=== PATIENT | male | born 1950 | race Caucasian/White ===

== ENCOUNTER → 2018-07-27 | Outpatient (CLI) | payer MEDICARE, OTHER | LOC: CARD 08:32 | PROVIDERS: ATTEND Physician Assistant | DX: I11.0 Hypertensive heart disease with heart failure (principal); I50.9 Heart failure, unspecified; I47.2 Ventricular tachycardia; I08.3 Combined rheumatic disorders of mitral, aortic and tricuspid valves | CPT/HCPCS: 93306 ==

== ENCOUNTER → 2018-09-10 | Outpatient (CLI) | payer MEDICARE, OTHER ==
--- NOTE | 2018-09-10 11:30 | Diagnostic Imaging Report ---
Indication: Acute bronchitis. Time of exam 11:21 AM Comparison is made with prior chest from 12/16/2007. Minimal patchy density is identified in the right midlung field suggestive of pneumonia. The pulmonary vascularity is normal. No effusion or pneumothorax is seen. Impression: Minimal patchy right midlung pneumonia. Dictated by: Dictated on workstation # [id number]
== END ==
LOC: RAD 11:11
PROVIDERS: ATTEND Physician Assistant
DX: J20.9 Acute bronchitis, unspecified (principal); J11.1 Influenza due to unidentified influenza virus with other respiratory manifestations
CPT/HCPCS: 71046

== ENCOUNTER 2019-02-11 09:15 | Outpatient (CLI) | payer MEDICARE, OTHER ==
[~2019-02-11] VITALS: Ht 177.8 cm; Wt 94.3 kg
[2019-02-11] MEDS ORDERED: ACEB400C PO (09:20)
[2019-02-11] MEDS ORDERED: FISH1CAP15 PO (09:20)
[2019-02-11] MEDS ORDERED: ATOR10TA PO (09:20)
[2019-02-11] MEDS ORDERED: PANT40TA3 PO (09:20)
[2019-02-11] MEDS ORDERED: ENAL10TA PO (09:20)
[2019-02-11] MEDS ORDERED: AMLO5TAB4 PO (09:20)
== END 2019-02-11 09:22 | disposition home or self-care (01) ==
LOC: PREOP 09:15
PROVIDERS: ATTEND Internal Medicine
DX: Z01.818 Encounter for other preprocedural examination (principal)

== ENCOUNTER 2019-02-12 08:03 | Day surgery (SDC) | payer MEDICARE, OTHER ==
--- NOTE | 2019-02-04 18:28 | HISTORY AND PHYSICAL ---
DATE OF SERVICE: 02/12/2019 COLONOSCOPY HISTORY AND PHYSICAL HISTORY OF PRESENT ILLNESS: The patient is a 68-year-old white male referred by Dr. Palmer for screening colonoscopy. He reports one of the colonoscopy 10 years ago. He does not recall any problems with. It was performed by Dr. Colbert. He is deemed to be of average risk. He is not aware of any family history for colon cancer. He denies any bowel habit changes. Noted no bright red blood per rectum, melena or abdominal pain. PAST MEDICAL HISTORY: Significant for hypertension and hyperlipidemia with no known history of coronary artery disease. He sees Dr. Moran occasionally as well as Dr. Palmer for palpitations. He has no reported history of vascular disease. MEDICATIONS: Include acebutolol 400 mg daily, enalapril 10 mg daily, Lipitor 10 mg daily, Norvasc 5 mg daily, fish oil supplementation 12,000 mg daily and pantoprazole 40 mg daily. PAST SURGICAL HISTORY: He had left distal tibial fracture, but he underwent open reduction and internal fixation number of years ago. He has had bilateral inguinal herniorrhaphy number of years ago as well. FAMILY HISTORY: Father of motor vehicle accident in his 40s. Mother of what sounds like esophageal cancer with liver metastasis. He has several brothers and sisters alive and well with no health problems. Additional history, he denies any dysphagia, heartburn symptoms are controlled on pantoprazole. Weight has been stable. SOCIAL HISTORY: He is retired with no past smoking history and reports about 2 to 3 beer per week. Alcohol intake with no past history of heavy drinking. He reports no known drug allergies. PHYSICAL EXAMINATION: GENERAL: Reveals a well-appearing white male in no acute distress. VITAL SIGNS: Blood pressure 120/80. HEENT: Unremarkable. Mallampati class 1 pharyngeal configuration. No erythema or exudate noted. CHEST: Clear to auscultation. CARDIOVASCULAR: Reveals a regular rate and rhythm without murmur, S3 or S4. ABDOMEN: Soft, supple without mass, organomegaly or tenderness. EXTREMITIES: Reveal no cyanosis, clubbing or edema. ASSESSMENT AND PLAN: The patient was set up for screening colonoscopy on 02/12/2019. Prep instructions with the Suprep kit were given and questions were answered. I thank you for the referral of this pleasant gentleman. Job ID: [id number] DocumentID: [id number] Dictated Date: 02/01/2019 14:47:13 [place]ter Date: 02/01/2019 15:04:30 Dictated By: TEMITOPE PRECIADO MD
[2019-02-12] VITALS (10 sets, daily range): BP systolic 113–150; BP diastolic 58–92
[~2019-02-12] VITALS: Ht 177.8 cm; Wt 94.3 kg
[~2019-02-12 08:03] MED LIST: ACEB400C PO; AMLO5TAB4 PO; ATOR10TA PO; ENAL10TA PO; FISH1CAP15 PO; PANT40TA3 PO
[2019-02-12] MEDS ORDERED: D5 LR IV SOLUTION 1,000 ML IV ONE (08:04)
[2019-02-12] MEDS ORDERED: D5 LR IV SOLUTION 1,000 ML IV STA (08:12)
[2019-02-12] MEDS ORDERED: LIDOCAINE JELLY 2% 6 ML SYRINGE MM PRN (08:15)
[2019-02-12] MEDS ORDERED: fentaNYL INJECTION 100 MCG/2 ML AMP IVP ONE (08:15)
[2019-02-12] MEDS ORDERED: MIDAZOLAM 2 MG/2 ML (VERSED) VIAL IVP ONE (08:15)
[2019-02-12] MEDS ORDERED: fentaNYL INJECTION 100 MCG/2 ML AMP ONE (08:51)
[2019-02-12] MEDS ORDERED: MIDAZOLAM 2 MG/2 ML (VERSED) VIAL ONE ×2 (08:51)
[2019-02-12] MEDS ORDERED: LIDOCAINE JELLY 2% 6 ML SYRINGE ONE (08:51)
--- NOTE | 2019-02-12 09:50 | Pre-Op Note & Conscious Sedat ---
Pre-Operative Progress Note H&P Reviewed The H&P was reviewed, patient examined and no changes noted. Date H&P Reviewed: Feb 12, 2019 Time H&P Reviewed: 08:40 Conscious Sedation Pre-Proced ASA Score 2 For ASA 3 and 4: Consider anesthesia and medical clearance. Also, for patients with a history of failed moderate sedation consider anesthesia. Airway Lungs Heart ASA score ASA 1: a normal healthy patient ASA 2: a patient with a mild systemic disease (mid diabetes, controlled hypertension, obesity ASA 3: a patient with a severe systemic disease that limits activity (angina, COPD, prior Myocardial infarction) ASA 4: a patient with an incapacitating disease that is a constant threat to life (CHF, renal failure) ASA 5: a moribund patient not expected to survive 24 hrs. (ruptured aneurysm) ASA 6: a declared brain- patient whose organs are being harvested. For emergent operations, add the letter E after the classification Mallampati Classification Grade 2 Sedation Plan Analgesia, Amnesia, Plan communicated to team members, Discussed options with patient/fam, Discussed risks with patient/fam The patient is an appropriate candidate to undergo the planned procedure, sedation, and anesthesia. The patient immediately re-assessed prior to indication. TEMITOPE PRECIADO MD Feb 12, 2019 09:50
--- OUTSIDE RECORDS SUMMARY | 2019-02-12 10:21 | XMS REPORT | Clinical Summary ---
Author Author [facility] Organization [facility] Address Unknown Phone Unavailable Care Team Providers Care Valuer Name Role Phone PCP Unavailable Source Comments Some departments are not documenting in the electronic medical record. If you d o not see the information that you expected, contact Release of Information in [facility] Information Management department at [phone] for further assistan ce in locating additional records.[facility] Allergies Not on File Medications Not on file Active Problems Not on file Social History Date Tobacco Use Types Packs/Day Years Used Never Assessed Sex Assigned at Date Recorded Not on file Industry Job Start Date Occupation Not on file Not on file Not on file Travel End Travel History Travel Start No recent travel history available. Last Filed Vital Signs Not on file Plan of Treatment Health Maintenance Due Date Last Done Comments HEPATITIS C SCREENING 1950 PHYSICAL (COMPREHENSIVE) 1957 EXAM DTAP/TDAP VACCINES (1 - 1968 Tdap) COLORECTAL CANCER 2000 SCREENING SHINGLES RECOMBINANT 2000 VACCINE (1 of 2) PNEUMONIA (PCV13/PPSV23) 10/24/2015 VACCINES (1 of 2 - PCV13) INFLUENZA VACCINE 04/06/2019 Results Not on filefrom Last 3 Months
--- OUTSIDE RECORDS SUMMARY | 2019-02-12 10:21 | XMS REPORT ---
Author KOLE Melara [facility] [place] eClinical[employer] Address Unknown Phone Unavailable Care Team Providers Care Machine Maintenance Name Role Phone KOLE ANTON CP Unavailable Allergies No Known Allergies Problems Problem Type Condition Code Onset Dates Condition Status Problem Need for prophylactic vaccination and inoculation, Influenza V04.81 Active Assessment Encounter for immunization Z23 Active Problem ZOSTAVAX DX V05.8 Active Medications No Known Medications Procedures Procedure Coding System Code Date SINGLE IMMUNIZATION ADMIN CPT-4 40283 May 12, 2015 FLUARIX QUAD (3 & UP)-GSK-2014 CPT-4 35442 May 12, 2015 Results No Known Results Immunizations Vaccine Administration Date FLUARIX QUAD (3 & UP)-GSK-2014May 12, 2015 Summary Purpose eClinicalWorks Submission
--- OUTSIDE RECORDS SUMMARY | 2019-02-12 10:22 | XMS REPORT | Continuity of Care Document ---
Demographics Preferred Language Unknown Marital Status Unknown Amish Affiliation Unknown Race Unknown Ethnic Group Unknown Author Organization Unknown Address Unknown Phone Unavailable Allergies Active Description Code Type Severity Reaction Onset Reported/Identified Relationship to Patient Clinical Status Yes No Known Drug Allergies [id number] Drug Allergy Unknown N/A 02/11/2019 Medications There is no data. Problems Date Dx Coded Attending Type Code Diagnosis Diagnosed By 06/05/1650 TIERNEY SHANKS Ot M70.32 OTHER BURSITIS OF ELBOW, LEFT ELBOW 07/29/2012 V04.81 FLU DX (3 YRS AND ABOVE, IM) 07/29/2012 V04.81 FLU DX (3 YRS AND ABOVE, IM) 09/23/2012 V05.8 ZOSTAVAX DX 06/13/2014 PRISCILLA FLORES Ot 401.9 06/13/2014 PRISCILLA FLORES Ot 427.1 06/13/2014 PRISCILLA FLORES Ot 428.0 07/01/2014 PRISCILLA FLORES Ot 401.9 07/01/2014 PRISCILLA FLORES Ot 427.1 07/01/2014 PRISCILLA FLORES Ot 428.0 07/01/2014 Ot 397.0 07/01/2014 Ot 424.0 07/01/2014 Ot 427.69 07/01/2014 Ot 428.0 07/01/2014 ANRDEW ARRIAZA MD Ot 397.0 07/01/2014 ANDREW ARRIAZA MD Ot 424.0 07/01/2014 ANDREW ARRIAZA MD Ot 428.0 07/01/2014 ANDREW ARRIAZA MD Ot 429.3 07/01/2014 PRISCILLA FLORES Ot 401.9 07/01/2014 PRISCILLA FLORES Ot 427.1 07/01/2014 PRISCILLA FLORES Ot 428.0 08/30/2014 Ot 397.0 08/30/2014 Ot 424.0 08/30/2014 Ot 427.69 08/30/2014 Ot 428.0 08/30/2014 ARSALAN HUGHES, ANDREW Scruggs Ot 397.0 08/30/2014 ARSALAN HUGHES, ANDREW Scruggs Ot 424.0 08/30/2014 ANDREW ARRIAZA MD Ot 428.0 08/30/2014 ANDREW ARRIAZA MD Ot 429.3 08/30/2014 HOLLY FLORESTH K Ot 401.9 08/30/2014 HOLLY FLORESTH K Ot 427.1 08/30/2014 HOLLY FLORESTH K Ot 428.0 12/19/2015 Ot 397.0 TRICUSPID VALVE DISEASE 12/19/2015 Ot 424.0 MITRAL VALVE DISORDER 12/19/2015 Ot 427.69 PREMATURE BEATS NEC 12/19/2015 Ot 428.0 CONGESTIVE HEART FAILURE NOS 12/19/2015 ANDREW ARRIAZA MD Ot 397.0 TRICUSPID VALVE DISEASE 12/19/2015 ANDREW ARRIAZA MD Ot 424.0 MITRAL VALVE DISORDER 12/19/2015 ANDREW ARRIAZA MD Ot 428.0 CONGESTIVE HEART FAILURE NOS 12/19/2015 ANDREW ARRIAZA MD Ot 429.3 CARDIOMEGALY 12/19/2015 HOLLY FLORESTH K Ot 401.9 HYPERTENSION NOS 12/19/2015 HOLLY FLORESTH K Ot 427.1 PAROX VENTRIC TACHYCARD 12/19/2015 HOLLY FLORESTH K Ot 428.0 CONGESTIVE HEART FAILURE NOS 12/19/2015 Ot 397.0 TRICUSPID VALVE DISEASE 12/19/2015 Ot 424.0 MITRAL VALVE DISORDER 12/19/2015 Ot 427.69 PREMATURE BEATS NEC 12/19/2015 Ot 428.0 CONGESTIVE HEART FAILURE NOS 12/19/2015 ANDREW ARRIAZA MD Ot 397.0 TRICUSPID VALVE DISEASE 12/19/2015 ANDREW ARRIAZA MD Ot 424.0 MITRAL VALVE DISORDER 12/19/2015 ANDREW ARRIAZA MD Ot 428.0 CONGESTIVE HEART FAILURE NOS 12/19/2015 ANDREW ARRIAZA MD Ot 429.3 CARDIOMEGALY 12/19/2015 HOLLY FLORESTH K Ot 401.9 HYPERTENSION NOS 12/19/2015 HOLLY FLORESTH K Ot 427.1 PAROX VENTRIC TACHYCARD 12/19/2015 HOLLY FLORESTH K Ot 428.0 CONGESTIVE HEART FAILURE NOS 12/27/2015 TIERNYE SHANKS Ot M70.32 OTHER BURSITIS OF ELBOW, LEFT ELBOW 01/24/2016 Ot 397.0 TRICUSPID VALVE DISEASE 01/24/2016 Ot 424.0 MITRAL VALVE DISORDER 01/24/2016 Ot 427.69 PREMATURE BEATS NEC 01/24/2016 Ot 428.0 CONGESTIVE HEART FAILURE NOS 01/24/2016 ANDREW ARRIAZA MD Ot 397.0 TRICUSPID VALVE DISEASE 01/24/2016 ANDREW ARRIAZA MD Ot 424.0 MITRAL VALVE DISORDER 01/24/2016 ANDREW ARRIAZA MD Ot 428.0 CONGESTIVE HEART FAILURE NOS 01/24/2016 ANDREW ARRIAZA MD Ot 429.3 CARDIOMEGALY 01/24/2016 PRISCILLA FLORES Ot 401.9 HYPERTENSION NOS 01/24/2016 PRISCILLA FLORES Ot 427.1 PAROX VENTRIC TACHYCARD 01/24/2016 PRISCILLA FLORES Ot 428.0 CONGESTIVE HEART FAILURE NOS 01/26/2016 Ot 397.0 TRICUSPID VALVE DISEASE 01/26/2016 Ot 424.0 MITRAL VALVE DISORDER 01/26/2016 Ot 427.69 PREMATURE BEATS NEC 01/26/2016 Ot 428.0 CONGESTIVE HEART FAILURE NOS 01/26/2016 ANDREW ARRIAZA MD Ot 397.0 TRICUSPID VALVE DISEASE 01/26/2016 ANDREW ARRIAZA MD Ot 424.0 MITRAL VALVE DISORDER 01/26/2016 ANDREW ARRIAZA MD Ot 428.0 CONGESTIVE HEART FAILURE NOS 01/26/2016 ANDREW ARRIAZA MD Ot 429.3 CARDIOMEGALY 01/26/2016 PRISCILLA FLORES Ot 401.9 HYPERTENSION NOS 01/26/2016 PRISCILLA FLORES Ot 427.1 PAROX VENTRIC TACHYCARD 01/26/2016 PRISCILLA FLORES Ot 428.0 CONGESTIVE HEART FAILURE NOS 05/08/2016 Ot 397.0 TRICUSPID VALVE DISEASE 05/08/2016 Ot 424.0 MITRAL VALVE DISORDER 05/08/2016 Ot 427.69 PREMATURE BEATS NEC 05/08/2016 Ot 428.0 CONGESTIVE HEART FAILURE NOS 05/08/2016 ANDREW ARRIAZA MD Ot 397.0 TRICUSPID VALVE DISEASE 05/08/2016 ANDREW ARRIAZA MD Ot 424.0 MITRAL VALVE DISORDER 05/08/2016 ANDREW ARRIAZA MD Ot 428.0 CONGESTIVE HEART FAILURE NOS 05/08/2016 ANDREW ARRIAZA MD Ot 429.3 CARDIOMEGALY 05/08/2016 PRISCILLA FLORES K Ot 401.9 HYPERTENSION NOS 05/08/2016 HOLLY FLORESTH K Ot 427.1 PAROX VENTRIC TACHYCARD 05/08/2016 HOLLY FLORESTH K Ot 428.0 CONGESTIVE HEART FAILURE NOS 05/10/2016 Ot 397.0 TRICUSPID VALVE DISEASE 05/10/2016 Ot 424.0 MITRAL VALVE DISORDER 05/10/2016 Ot 427.69 PREMATURE BEATS NEC 05/10/2016 Ot 428.0 CONGESTIVE HEART FAILURE NOS 05/10/2016 ANDREW ARRIAZA MD Ot 397.0 TRICUSPID VALVE DISEASE 05/10/2016 ANDREW ARRIAZA MD Ot 424.0 MITRAL VALVE DISORDER 05/10/2016 ANDREW ARRIAZA MD Ot 428.0 CONGESTIVE HEART FAILURE NOS 05/10/2016 ANDREW ARRIAZA MD Ot 429.3 CARDIOMEGALY 05/10/2016 HOLLY FLORESTH K Ot 401.9 HYPERTENSION NOS 05/10/2016 HOLLY FLORESTH K Ot 427.1 PAROX VENTRIC TACHYCARD 05/10/2016 HOLLY FLORESTH K Ot 428.0 CONGESTIVE HEART FAILURE NOS 05/24/2016 ANDREW ARRIAZA MD Ot I11.0 HYPERTENSIVE HEART DISEASE WITH HEART FA 05/24/2016 ANDREW ARRIAZA MD Ot I47.2 VENTRICULAR TACHYCARDIA 05/24/2016 ANDREW ARRIAZA MD Ot I50.22 CHRONIC SYSTOLIC (CONGESTIVE) HEART FAIL 05/29/2016 DELGADO HERNANDEZ APRN Ot R29.810 FACIAL WEAKNESS 05/29/2016 DELGADO HERNANDEZ APRN Ot S09.90XA UNSPECIFIED INJURY OF HEAD, INITIAL ENCO 05/29/2016 DELGADO HERNANDEZ APRN Ot X58.XXXA EXPOSURE TO OTHER SPECIFIED FACTORS, INI 05/29/2016 DELGADO HERNANDEZ APRN Ot Y92.[address] OR NOT APPLICABLE 05/29/2016 DELGADO HERNANDEZ APRN Ot Y93.9 ACTIVITY, UNSPECIFIED 05/29/2016 DELGADO HERNANDEZ STRATEGIC PARTNERSHIP REPRESENTATIVE Ot Y99.8 OTHER EXTERNAL CAUSE STATUS 05/29/2016 DELGADO HERNANDEZ STRATEGIC PARTNERSHIP REPRESENTATIVE Ot R29.810 FACIAL WEAKNESS 05/29/2016 DELGADO HERNANDEZ STRATEGIC PARTNERSHIP REPRESENTATIVE Ot S09.90XA UNSPECIFIED INJURY OF HEAD, INITIAL ENCO 05/29/2016 DELGADO HERNANDEZ STRATEGIC PARTNERSHIP REPRESENTATIVE Ot X58.XXXA EXPOSURE TO OTHER SPECIFIED FACTORS, INI 05/29/2016 DELGADO HERNANDEZ STRATEGIC PARTNERSHIP REPRESENTATIVE Ot Y92.[address] OR NOT APPLICABLE 05/29/2016 MARYDELGADO R STRATEGIC PARTNERSHIP REPRESENTATIVE Ot Y93.9 ACTIVITY, UNSPECIFIED 05/29/2016 MARYDELGADO R STRATEGIC PARTNERSHIP REPRESENTATIVE Ot Y99.8 OTHER EXTERNAL CAUSE STATUS 05/29/2016 DELGADO HERNANDEZ STRATEGIC PARTNERSHIP REPRESENTATIVE Ot R29.810 FACIAL WEAKNESS 05/29/2016 DELGADO HERNANDEZ STRATEGIC PARTNERSHIP REPRESENTATIVE Ot S09.90XA UNSPECIFIED INJURY OF HEAD, INITIAL ENCO 05/29/2016 DELGADO HERNANDEZ R STRATEGIC PARTNERSHIP REPRESENTATIVE Ot X58.XXXA EXPOSURE TO OTHER SPECIFIED FACTORS, INI 05/29/2016 DELGADO HERNANDEZ R STRATEGIC PARTNERSHIP REPRESENTATIVE Ot Y92.[address] OR NOT APPLICABLE 05/29/2016 DELGADO HERNANDEZ R STRATEGIC PARTNERSHIP REPRESENTATIVE Ot Y93.9 ACTIVITY, UNSPECIFIED 05/29/2016 DELGADO HERNANDEZ R STRATEGIC PARTNERSHIP REPRESENTATIVE Ot Y99.8 OTHER EXTERNAL CAUSE STATUS 06/03/2016 Ot 397.0 TRICUSPID VALVE DISEASE 06/03/2016 Ot 424.0 MITRAL VALVE DISORDER 06/03/2016 Ot 427.69 PREMATURE BEATS NEC 06/03/2016 Ot 428.0 CONGESTIVE HEART FAILURE NOS 06/03/2016 ANDREW ARRIAZA MD Ot 397.0 TRICUSPID VALVE DISEASE 06/03/2016 ANDREW ARRIAZA MD Ot 424.0 MITRAL VALVE DISORDER 06/03/2016 ANDREW ARRIAZA MD Ot 428.0 CONGESTIVE HEART FAILURE NOS 06/03/2016 ANDREW ARRIAZA MD Ot 429.3 CARDIOMEGALY 06/03/2016 PRISCILLA FLORES Ot 401.9 HYPERTENSION NOS 06/03/2016 PRISCILLA FLORES Ot 427.1 PAROX VENTRIC TACHYCARD 06/03/2016 PRISCILLA FLORES Ot 428.0 CONGESTIVE HEART FAILURE NOS 06/03/2016 ANDREW ARRIAZA MD Ot I11.0 HYPERTENSIVE HEART DISEASE WITH HEART FA 06/03/2016 ANDREW ARRIAZA MD Ot I47.2 VENTRICULAR TACHYCARDIA 06/03/2016 ANDREW ARRIAZA MD Ot I50.22 CHRONIC SYSTOLIC (CONGESTIVE) HEART FAIL 06/03/2016 MARY DELGADO Clark STRATEGIC PARTNERSHIP REPRESENTATIVE Ot R29.810 FACIAL WEAKNESS 06/03/2016 MARY DELGADO Clark STRATEGIC PARTNERSHIP REPRESENTATIVE Ot S09.90XA UNSPECIFIED INJURY OF HEAD, INITIAL ENCO 06/03/2016 MARY DELGADO Clark STRATEGIC PARTNERSHIP REPRESENTATIVE Ot X58.XXXA EXPOSURE TO OTHER SPECIFIED FACTORS, INI 06/03/2016 MARY DELGADO Clark STRATEGIC PARTNERSHIP REPRESENTATIVE Ot Y92.[address] OR NOT APPLICABLE 06/03/2016 DELGADO HERNANDEZ STRATEGIC PARTNERSHIP REPRESENTATIVE Ot Y93.9 ACTIVITY, UNSPECIFIED 06/03/2016 MARY DELGADO R STRATEGIC PARTNERSHIP REPRESENTATIVE Ot Y99.8 OTHER EXTERNAL CAUSE STATUS 06/03/2016 MARYAURELIAN R STRATEGIC PARTNERSHIP REPRESENTATIVE Ot R29.810 FACIAL WEAKNESS 06/03/2016 MARYDELGADO R STRATEGIC PARTNERSHIP REPRESENTATIVE Ot S09.90XA UNSPECIFIED INJURY OF HEAD, INITIAL ENCO 06/03/2016 AURELIA HERNANDEZDung Clark STRATEGIC PARTNERSHIP REPRESENTATIVE Ot X58.XXXA EXPOSURE TO OTHER SPECIFIED FACTORS, INI 06/03/2016 MARY DELGADO Clark STRATEGIC PARTNERSHIP REPRESENTATIVE Ot Y92.[address] OR NOT APPLICABLE 06/03/2016 MARY DELGADO R STRATEGIC PARTNERSHIP REPRESENTATIVE Ot Y93.9 ACTIVITY, UNSPECIFIED 06/03/2016 MARYAURELIADung Clark STRATEGIC PARTNERSHIP REPRESENTATIVE Ot Y99.8 OTHER EXTERNAL CAUSE STATUS 06/04/2016 MARY DELGADO Clark STRATEGIC PARTNERSHIP REPRESENTATIVE Ot R29.810 FACIAL WEAKNESS 06/04/2016 MARYAURELIAN R STRATEGIC PARTNERSHIP REPRESENTATIVE Ot S09.90XA UNSPECIFIED INJURY OF HEAD, INITIAL ENCO 06/04/2016 MARYAURELIAN R STRATEGIC PARTNERSHIP REPRESENTATIVE Ot X58.XXXA EXPOSURE TO OTHER SPECIFIED FACTORS, INI 06/04/2016 DELGADO HERNANDEZ STRATEGIC PARTNERSHIP REPRESENTATIVE Ot Y92.[address] OR NOT APPLICABLE 06/04/2016 MARY DELGADO R STRATEGIC PARTNERSHIP REPRESENTATIVE Ot Y93.9 ACTIVITY, UNSPECIFIED 06/04/2016 MARYDELGADO STRATEGIC PARTNERSHIP REPRESENTATIVE Ot Y99.8 OTHER EXTERNAL CAUSE STATUS 07/10/2016 Ot 397.0 TRICUSPID VALVE DISEASE 07/10/2016 Ot 424.0 MITRAL VALVE DISORDER 07/10/2016 Ot 427.69 PREMATURE BEATS NEC 07/10/2016 Ot 428.0 CONGESTIVE HEART FAILURE NOS 07/10/2016 ANDREW ARRIAZA MD Ot 397.0 TRICUSPID VALVE DISEASE 07/10/2016 ANDREW ARRIAZA MD Ot 424.0 MITRAL VALVE DISORDER 07/10/2016 ANDREW ARRIAZA MD Ot 428.0 CONGESTIVE HEART FAILURE NOS 07/10/2016 ANDREW ARRIAZA MD Ot 429.3 CARDIOMEGALY 07/10/2016 PRISCILLA FLORES Ot 401.9 HYPERTENSION NOS 07/10/2016 PRISCILLA FLORES Ot 427.1 PAROX VENTRIC TACHYCARD 07/10/2016 PRISCILLA FLORES Ot 428.0 CONGESTIVE HEART FAILURE NOS 07/10/2016 ANDREW ARRIAZA MD Ot I11.0 HYPERTENSIVE HEART DISEASE WITH HEART FA 07/10/2016 ANDREW ARRIAZA MD Ot I47.2 VENTRICULAR TACHYCARDIA 07/10/2016 ANDREW ARRIAZA MD Ot I50.22 CHRONIC SYSTOLIC (CONGESTIVE) HEART FAIL 07/10/2016 DELGADO HERNANDEZ STRATEGIC PARTNERSHIP REPRESENTATIVE Ot R29.810 FACIAL WEAKNESS 07/10/2016 DELGADO HERNANDEZ STRATEGIC PARTNERSHIP REPRESENTATIVE Ot S09.90XA UNSPECIFIED INJURY OF HEAD, INITIAL ENCO 07/10/2016 DELGADO HERNANDEZ APRN Ot X58.XXXA EXPOSURE TO OTHER SPECIFIED FACTORS, INI 07/10/2016 DELGADO HERNANDEZ APRN Ot Y92.[address] OR NOT APPLICABLE 07/10/2016 DELGADO HERNANDEZ APRN Ot Y93.9 ACTIVITY, UNSPECIFIED 07/10/2016 DELGADO HERNANDEZ APRN Ot Y99.8 OTHER EXTERNAL CAUSE STATUS 11/12/2016 ANDREW ARRIAZA MD Ot 397.0 TRICUSPID VALVE DISEASE 11/12/2016 ANDREW ARRIAZA MD Ot 424.0 MITRAL VALVE DISORDER 11/12/2016 ANDREW ARRIAZA MD Ot 428.0 CONGESTIVE HEART FAILURE NOS 11/12/2016 ANDREW ARRIAZA MD Ot 429.3 CARDIOMEGALY 11/12/2016 PRISCILLA FLORES Ot 401.9 HYPERTENSION NOS 11/12/2016 PRISCILLA FLORES Ot 427.1 PAROX VENTRIC TACHYCARD 11/12/2016 PRISCILLA FLORES Ot 428.0 CONGESTIVE HEART FAILURE NOS 11/12/2016 ANDREW ARRIAZA MD Ot I11.0 HYPERTENSIVE HEART DISEASE WITH HEART FA 11/12/2016 ANDREW ARRIAZA MD Ot I47.2 VENTRICULAR TACHYCARDIA 11/12/2016 ANDREW ARRIAZA MD Ot I50.22 CHRONIC SYSTOLIC (CONGESTIVE) HEART FAIL 11/12/2016 DELGADO HERNANDEZ STRATEGIC PARTNERSHIP REPRESENTATIVE Ot R29.810 FACIAL WEAKNESS 11/12/2016 DELGADO HERNANDEZ STRATEGIC PARTNERSHIP REPRESENTATIVE Ot S09.90XA UNSPECIFIED INJURY OF HEAD, INITIAL ENCO 11/12/2016 DELGADO HERNANDEZ APRN Ot X58.XXXA EXPOSURE TO OTHER SPECIFIED FACTORS, INI 11/12/2016 DELGADO HERNANDEZ APRN Ot Y92.[address] OR NOT APPLICABLE 11/12/2016 DELGADO HERNANDEZ APRN Ot Y93.9 ACTIVITY, UNSPECIFIED 11/12/2016 DELGADO HERNANDEZ APRN Ot Y99.8 OTHER EXTERNAL CAUSE STATUS 11/12/2016 ANDREW ARRIAZA MD Ot I11.0 HYPERTENSIVE HEART DISEASE WITH HEART FA 11/12/2016 ANDREW ARRIAZA MD Ot I47.2 VENTRICULAR TACHYCARDIA 11/12/2016 ANDREW ARRIAZA MD Ot I50.22 CHRONIC SYSTOLIC (CONGESTIVE) HEART FAIL 12/08/2016 ANDREW ARRIAZA MD Ot 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 TRICUSPID VALVE DISEASE 12/08/2016 ANDREW ARRIAZA MD Ot 424.0 MITRAL VALVE DISORDER 12/08/2016 ANDREW ARRIAZA MD Ot 428.0 CONGESTIVE HEART FAILURE NOS 12/08/2016 ANDREW ARRIAZA MD Ot 429.3 CARDIOMEGALY 12/08/2016 PRISCILLA FLORES Ot 401.9 HYPERTENSION NOS 12/08/2016 PRISCILLA FLORES Ot 427.1 PAROX VENTRIC TACHYCARD 12/08/2016 PRISCILLA FLORES Ot 428.0 CONGESTIVE HEART FAILURE NOS 12/08/2016 ANDREW ARRIAZA MD Ot I11.0 HYPERTENSIVE HEART DISEASE WITH HEART FA 12/08/2016 ANDREW ARRIAZA MD Ot I47.2 VENTRICULAR TACHYCARDIA 12/08/2016 ANDREW ARRIAZA MD Ot I50.22 CHRONIC SYSTOLIC (CONGESTIVE) HEART FAIL 12/08/2016 MARY DELGADO Clark STRATEGIC PARTNERSHIP REPRESENTATIVE Ot R29.810 FACIAL WEAKNESS 12/08/2016 DELGADO HERNANDEZ STRATEGIC PARTNERSHIP REPRESENTATIVE Ot S09.90XA UNSPECIFIED INJURY OF HEAD, INITIAL ENCO 12/08/2016 DELGADO HERNANDEZ STRATEGIC PARTNERSHIP REPRESENTATIVE Ot X58.XXXA EXPOSURE TO OTHER SPECIFIED FACTORS, INI 12/08/2016 DELGADO HERNANDEZ STRATEGIC PARTNERSHIP REPRESENTATIVE Ot Y92.[address] OR NOT APPLICABLE 12/08/2016 DELGADO HERNANDEZ STRATEGIC PARTNERSHIP REPRESENTATIVE Ot Y93.9 ACTIVITY, UNSPECIFIED 12/08/2016 DELGADO HERNANDEZ STRATEGIC PARTNERSHIP REPRESENTATIVE Ot Y99.8 OTHER EXTERNAL CAUSE STATUS 06/16/2018 ANDREW ARRIAZA MD Ot 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 TRICUSPID VALVE DISEASE 06/16/2018 ANDREW ARRIAZA MD Ot 424.0 MITRAL VALVE DISORDER 06/16/2018 ANDREW ARRIAZA MD Ot 428.0 CONGESTIVE HEART FAILURE NOS 06/16/2018 ANDREW ARRIAZA MD Ot 429.3 CARDIOMEGALY 06/16/2018 PRISCILLA FLORES Ot 401.9 HYPERTENSION NOS 06/16/2018 PRISCILLA FLORES Ot 427.1 PAROX VENTRIC TACHYCARD 06/16/2018 PRISCILLA FLORES Ot 428.0 CONGESTIVE HEART FAILURE NOS 06/16/2018 ANDREW ARRIAZA MD Ot I11.0 HYPERTENSIVE HEART DISEASE WITH HEART FA 06/16/2018 ANDREW ARRIAZA MD Ot I47.2 VENTRICULAR TACHYCARDIA 06/16/2018 ANDREW ARRIAZA MD Ot I50.22 CHRONIC SYSTOLIC (CONGESTIVE) HEART FAIL 06/16/2018 DELGADO HERNANDEZ STRATEGIC PARTNERSHIP REPRESENTATIVE Ot R29.810 FACIAL WEAKNESS 06/16/2018 DELGADO HERNANDEZ STRATEGIC PARTNERSHIP REPRESENTATIVE Ot S09.90XA UNSPECIFIED INJURY OF HEAD, INITIAL ENCO 06/16/2018 DELGADO HERNANDEZ STRATEGIC PARTNERSHIP REPRESENTATIVE Ot X58.XXXA EXPOSURE TO OTHER SPECIFIED FACTORS, INI 06/16/2018 DELGADO HERNANDEZ STRATEGIC PARTNERSHIP REPRESENTATIVE Ot Y92.[address] OR NOT APPLICABLE 06/16/2018 DELGADO HERNANDEZ STRATEGIC PARTNERSHIP REPRESENTATIVE Ot Y93.9 ACTIVITY, UNSPECIFIED 06/16/2018 DELGADO HERNANDEZ STRATEGIC PARTNERSHIP REPRESENTATIVE Ot Y99.8 OTHER EXTERNAL CAUSE STATUS 06/16/2018 ANDREW ARRIAZA MD Ot 397.0 TRICUSPID VALVE DISEASE 06/16/2018 ANDREW ARRIAZA MD Ot 424.0 MITRAL VALVE DISORDER 06/16/2018 ANDREW ARRIAZA MD Ot 428.0 CONGESTIVE HEART FAILURE NOS 06/16/2018 ANDREW ARRIAZA MD Ot 429.3 CARDIOMEGALY 06/16/2018 PRISCILLA FLORES Ot 401.9 HYPERTENSION NOS 06/16/2018 PRISCILLA FLORES Ot 427.1 PAROX VENTRIC TACHYCARD 06/16/2018 PRISCILLA FLORES Ot 428.0 CONGESTIVE HEART FAILURE NOS 06/16/2018 ANDREW ARRIAZA MD Ot I11.0 HYPERTENSIVE HEART DISEASE WITH HEART FA 06/16/2018 ANDREW ARRIAZA MD Ot I47.2 VENTRICULAR TACHYCARDIA 06/16/2018 ANDREW ARRIAZA MD Ot I50.22 CHRONIC SYSTOLIC (CONGESTIVE) HEART FAIL 06/16/2018 DELGADO HERNANDEZ APRN Ot R29.810 FACIAL WEAKNESS 06/16/2018 DELGADO HERNANDEZ APRN Ot S09.90XA UNSPECIFIED INJURY OF HEAD, INITIAL ENCO 06/16/2018 DELGADO HERNANDEZ APRN Ot X58.XXXA EXPOSURE TO OTHER SPECIFIED FACTORS, INI 06/16/2018 DELGADO HERNANDEZ APRN Ot Y92.[address] OR NOT APPLICABLE 06/16/2018 DELGADO HERNANDEZ APRN Ot Y93.9 ACTIVITY, UNSPECIFIED 06/16/2018 DELGADO HERNANDEZ APRN Ot Y99.8 OTHER EXTERNAL CAUSE STATUS 07/29/2018 PRISCILLA FLORES Ot I08.3 COMB RHEUMATIC DISORD OF MITRAL, AORTIC 07/29/2018 PRISCILLA FLORES Ot I11.0 HYPERTENSIVE HEART DISEASE WITH HEART FA 07/29/2018 PRISCILLA FLORES Ot I47.2 VENTRICULAR TACHYCARDIA 07/29/2018 PRISCILLA FLORES Ot I50.9 HEART FAILURE, UNSPECIFIED 08/19/2018 PRISCILLA FLORES Ot I08.3 COMB RHEUMATIC DISORD OF MITRAL, AORTIC 08/19/2018 PRISCILLA FLORES Ot I11.0 HYPERTENSIVE HEART DISEASE WITH HEART FA 08/19/2018 PRISCILLA FLORES Ot I47.2 VENTRICULAR TACHYCARDIA 08/19/2018 PRISCILLA FLORES Ot I50.9 HEART FAILURE, UNSPECIFIED 09/17/2018 ABILIO CASTELAN MIRANDA L Ot J11.1 FLU DUE TO UNIDENTIFIED INFLUENZA VIRUS 09/17/2018 ABILIO CASTELAN MIRANDA L Ot J20.9 ACUTE BRONCHITIS, UNSPECIFIED 10/07/2018 MIRANDA PATEL Ot J11.1 FLU DUE TO UNIDENTIFIED INFLUENZA VIRUS 10/07/2018 MIRANDA PATEL Ot J20.9 ACUTE BRONCHITIS, UNSPECIFIED 02/11/2019 OZZY HUGHES, TEMITOPE Tovar Ot Z01.818 ENCOUNTER FOR OTHER PREPROCEDURAL EXAMIN Procedures There is no data. Results There is no data. Encounters ACCT No. Visit Date/Time Discharge Status Pt. Type Provider Facility Loc./Unit Complaint [id number] 09/23/2012 12:33:00 09/23/2012 23:59:59 CLS Outpatient [id number] 07/29/2012 16:22:00 07/29/2012 23:59:59 CLS Outpatient [id number] 02/11/2019 09:15:00 02/11/2019 09:22:00 DIS Outpatient TEMITOPE PRECIADO MD Via [facility] PREOP COLONOSCOPY SCREENING [id number] 09/10/2018 11:11:00 09/10/2018 23:59:59 CLS Outpatient MIRANDA PATEL [facility] RAD ACUTE BRONCHITIS [id number] 07/27/2018 08:32:00 07/27/2018 23:59:59 CLS Outpatient PRISCILLA FLORES [facility] CARD CHF [id number] 05/28/2016 11:49:00 05/28/2016 23:59:59 CLS Outpatient DELGADO HERNANDEZ APRN [facility] RAD HEAD TRAUMA,FACIAL DROOPING [id number] 05/10/2016 08:56:00 05/10/2016 23:59:59 CLS Outpatient ANDREW ARRIAZA MD [facility] CARD CHF,HTN,LVH [id number] 12/22/2015 08:19:00 12/27/2015 16:51:00 DIS Outpatient TIERNEY SHANKS [facility] REHAB TRAUMATIC BURSITIS L ELBOW WITH CELLULITIS [id number] 12/15/2015 10:16:00 12/15/2015 23:59:59 CLS Outpatient TIERNEY SHANKS [facility] OCC [id number] 05/16/2014 07:46:00 05/16/2014 23:59:59 CLS Outpatient SABRINA CASTELAN, PRISCILLA K [facility] CARD CHF,HTN,HLP [id number] 03/02/2013 08:36:00 03/02/2013 23:59:59 CLS Outpatient ARSALAN HUGHES, ANDREW Scruggs [facility] CARD CHF [id number] 02/12/2019 09:00:00 PEN Preadmit OZZY HUGHES, TEMITOPE Tovar [facility] ENDO SCREENING [id number] 03/06/2011 12:12:00 Document Registration [id number] 05/16/2017 10:30:00 05/16/2017 23:59:59 CLS Outpatient JEROD GARCIA [facility]
--- NOTE | 2019-02-12 20:19 | OPERATIVE REPORT ---
DATE OF SERVICE: COLONOSCOPY SUMMARY INDICATION FOR THE PROCEDURE: Screening colonoscopy. The patient was placed in left lateral decubitus position. Prior to undergoing colonoscopy, digital rectal evaluation was performed. Anal sphincter tone was normal and the perianal reflex was intact. Digital evaluation of the prostate was unremarkable as was the distal rectal vault and anal canal. The colonoscope was then inserted into the rectum and under direct visualization advanced to cecum. The cecum was identified by identification of the ileocecal valve and the cecal strap. Photographic documentation was obtained. Quality of prep was good. The patient tolerated the procedure well. FINDINGS: There was no evidence for internal or external hemorrhoids and the rectum was unremarkable. Several small sigmoid diverticulum were present with no other sigmoid abnormalities being appreciated. The ascending colon and transverse colon were unremarkable. Present in the distal ascending colon was one diminutive 1 mm sessile conde polyp that was photographed and biopsied and ablated with no subsequent blood loss. Remainder of the ascending colon and cecum were unremarkable. ASSESSMENT: One diminutive polyp was removed from the distal ascending colon. Mild diverticular disease confined to the sigmoid colon was noted without evidence for diverticulitis. Advise consideration for repeat screening colonoscopy in 10 years. I thank you for the referral of this pleasant gentleman. Job ID: [id number] DocumentID: [id number] Dictated Date: 02/12/2019 11:30:57 Sales Producer Date: 02/12/2019 20:19:05 Dictated By: TEMITOPE PRECIADO MD
== END 2019-02-12 10:20 | disposition home or self-care (01) ==
LOC: ENDO 08:03
PROVIDERS: ATTEND Internal Medicine
DX: Z12.11 Encounter for screening for malignant neoplasm of colon (principal); K57.30 Diverticulosis of large intestine without perforation or abscess without bleeding; K63.89 Other specified diseases of intestine; I10 Essential (primary) hypertension; E78.5 Hyperlipidemia, unspecified; R00.2 Palpitations; Z79.899 Other long term (current) drug therapy

== ENCOUNTER 2019-08-04 13:34 | Outpatient (CLI) | payer MEDICARE, OTHER ==
[~2019-08-04] VITALS: Ht 180.3 cm; Wt 90.8 kg
--- NOTE | 2019-08-04 13:40 | NUR ---
HERE FOR IV FLUID INFUSION. REPORTS ONSET OF FREQUENT DIARRHEA AND ABDOMINAL CRAMPING STARTING 07/30/19. DENIES HX OF VOMITING OR FEVER.
[2019-08-04] MEDS ORDERED: NS IV 1000 ML 1,000 ML ONE (13:55)
[2019-08-04 14:10] VITALS: BP 123/71
[2019-08-04] MEDS ORDERED: NS IV 1000 ML 1,000 ML IV SCH (14:15)
[2019-08-04] MEDS ORDERED: AMLO10TA4 PO (14:26)
== END 2019-08-04 15:07 | disposition home or self-care (01) ==
LOC: SDC 13:34
PROVIDERS: ATTEND Nurse Practitioner
DX: E86.0 Dehydration (principal)
CPT/HCPCS: 96360

== ENCOUNTER → 2020-10-11 | Outpatient (CLI) | payer MEDICARE, OTHER ==
[~2020-10-11] MED LIST changes: +AMLO10TA4 PO; -ENAL10TA PO; +ENAL10TA16 PO; -PANT40TA3 PO; +PANT40TA52 PO
== END ==
LOC: CARD 09:28
PROVIDERS: ATTEND Internal Medicine Cardiovascular Disease
DX: I11.9 Hypertensive heart disease without heart failure (principal)
CPT/HCPCS: 93306

== ENCOUNTER → 2021-09-25 | Outpatient (CLI) | payer MEDICARE, OTHER ==
--- NOTE | 2021-09-25 08:50 | Diagnostic Imaging Report ---
INDICATION: Right flank pain. COMPARISON: None FINDINGS: 2 frontal supine radiographic views of the abdomen were obtained. There is thin spherical shaped calcification within the left upper abdominal quadrant. It measures approximately 3.5 cm in diameter. Patient is also status post previous hernia repair in the right pelvis. No other unexpected extraosseous calcifications or radiopaque foreign bodies are seen. Small bowel loops are nondistended. There is no large collection of free intraperitoneal air. Osseous structures show age-related degenerative changes. IMPRESSION: 1. Nonobstructed small bowel gas pattern. 2. Thin spherical shaped calcification left upper abdominal quadrant. Findings could be on the basis of calcified splenic or renal cyst. Peripherally calcified splenic artery aneurysm is also within the differential. Further evaluation with postcontrast CT is recommended. Dictated by: Dictated on workstation # [id number]
== END ==
LOC: RAD 08:18
PROVIDERS: ATTEND Internal Medicine
DX: R10.9 Unspecified abdominal pain (principal); Z87.442 Personal history of urinary calculi
CPT/HCPCS: 74018

== ENCOUNTER → 2021-10-05 | Outpatient (CLI) | payer MEDICARE, OTHER ==
[~2021-10-05] MED LIST changes: +CATHETER FLUSH 10 ML SYR IV PRN; +HOLD METFORMIN - RECEIVED CONTRAST 20 ML VIAL IV SCH; +IOHEXOL 350 MG/ML 100 ML (OMNIPAQUE 350) VIAL IV ONE; +NS 100 ML (IVPB) BAG IV ONE
[2021-10-05 08:57] LABS: ALBUMIN 4.1 GM/DL (3.2-4.5); BILIRUBIN,TOTAL 0.9 MG/DL (0.1-1.0); CALCIUM 9.3 MG/DL (8.5-10.1); CREATININE SERUM 1.02 MG/DL (0.60-1.30); POTASSIUM 4.3 MMOL/L (3.6-5.0); TOTAL PROTEIN 6.8 GM/DL (6.4-8.2)
--- NOTE | 2021-10-05 09:38 | Diagnostic Imaging Report ---
EXAMINATION: CT abdomen and pelvis with intravenous contrast. TECHNIQUE: Multiple contiguous axial images were obtained through the abdomen and pelvis after the uneventful administration of intravenous contrast. All CT scans use one or more of the following dose optimizing techniques: automated exposure control, MA and/or KvP adjustment based on patient size and exam type or iterative reconstruction. HISTORY: Right flank pain COMPARISON: None available. FINDINGS: Limited views of the lower thorax are unremarkable. The liver is normal without focal lesion. There is no biliary ductal dilation. Gallbladder is normal. There is a 2.1 x 2.6 cm mixed cystic and solid lesion in the tail of the pancreas. Spleen is normal. Adrenal glands are normal. No splenic artery aneurysm is seen. There is a complex cyst in left kidney with peripheral calcifications measuring 3.3 cm. There is a simple cyst in the right kidney. There is no hydronephrosis. There is a small bladder diverticulum on the left. No renal or ureteral stones are seen. Bowel is normal in caliber without obstruction or inflammation. There is diverticulosis without diverticulitis. No free fluid or air. No abdominal or pelvic lymphadenopathy. Aorta is normal in caliber without aneurysm. There is a small fat-containing umbilical hernia. There are no suspicious osseus lesions. IMPRESSION: 1. The calcified lesion seen on prior radiography is a calcified renal cyst. Followup renal protocol CT is recommended in three months for further evaluation and to confirm stability. 2. Suspicious adnexal cystic and solid pancreatic tail lesion. Abdomen MRI with and without contrast recommended for further evaluation as this may represent a pancreatic malignancy. Dictated by: Dictated on workstation # [id number]
== END ==
LOC: RAD 08:45
PROVIDERS: ATTEND Internal Medicine
DX: N28.1 Cyst of kidney, acquired (principal)
CPT/HCPCS: 36415; 74177; 80053

== ENCOUNTER → 2021-10-10 | Outpatient (CLI) | payer MEDICARE, OTHER ==
[~2021-10-10] MED LIST changes: -CATHETER FLUSH 10 ML SYR IV PRN; +GADOTERATE 0.5 MMOL/ML (CLARISCAN) 20 ML VIAL IV ONE; -HOLD METFORMIN - RECEIVED CONTRAST 20 ML VIAL IV SCH; -IOHEXOL 350 MG/ML 100 ML (OMNIPAQUE 350) VIAL IV ONE; -NS 100 ML (IVPB) BAG IV ONE
--- NOTE | 2021-10-10 14:00 | Diagnostic Imaging Report ---
EXAMINATION: MRI of the abdomen with and without contrast. TECHNIQUE: Multiplanar, multisequence MR images of the abdomen were obtained with and without intravenous contrast. HISTORY: Pancreatic lesion evaluation. COMPARISON: 10/05/2021 CT FINDINGS: Liver: The liver is normal in signal and smooth in contour. There is no focal hepatic mass. The portal and hepatic veins are patent. Gallbladder and Bile Ducts: There is no intrahepatic or extrahepatic bile duct dilation. There are no filling defects in the gallbladder or common bile duct. Pancreas: There is a multiloculated cystic lesion within the pancreatic tail measuring 1.9 x 1.9 cm. No definitive connection of the pancreatic duct is seen. No suspicious enhancing or solid component. Kidneys: Nonenhancing renal cysts are present. No hydronephrosis or suspicious enhancing renal lesion. Adrenal glands: There is no adrenal gland nodule or thickening. Spleen: The spleen is normal in size without focal lesion. Lymph Nodes: There is no suspicious lymphadenopathy. Other: There is no ascites. IMPRESSION: 1. A 1.9 cm nonenhancing multiloculated cystic lesion pancreatic tail. Difference consideration includes serous cystadenoma or other mucinous neoplasm such as IPMN. Consider MRI followup in one year to assess stability. Dictated by: Dictated on workstation # [id number]
== END ==
LOC: RAD 12:30
PROVIDERS: ATTEND Internal Medicine
DX: K86.2 Cyst of pancreas (principal)
CPT/HCPCS: 74183

== ENCOUNTER → 2021-10-31 | Outpatient (CLI) | payer MEDICARE, OTHER ==
[~2021-10-31] MED LIST changes: +CATHETER FLUSH 10 ML SYR IVP PRN; -GADOTERATE 0.5 MMOL/ML (CLARISCAN) 20 ML VIAL IV ONE; +REGADENOSON 0.4 MG/5 ML SYR (LEXISCAN) IV ONE
[2021-10-31 08:56] VITALS: BP 141/89
--- NOTE | 2021-10-31 12:32 | Cardiology Stress Test Report ---
Stress Test Report Date of Procedure/Referring: Date of Procedure: Oct 31, 2021 PCP Andrew Moran MD Admitting Physician Carlos Eduardo Palmer MD Indications: HTN Baseline Heart Rate: 61 Baseline Blood Pressure: Blood Pressure Systolic: 141 Blood Pressure Diastolic: 89 Baseline Vitals Vital Signs Date Time Temp Pulse Resp B/P (MAP) Pulse Ox O2 Delivery O2 Flow Rate FiO2 10/31/21 08:56 61 141/89 (106) Baseline EKG: Baseline EKG: NSR Summary After explaining the procedure to the patient, he signed a consent and then brought to the stress nuclear laboratory. Patient received 0.4 mg Lexiscan for stress test, ECG, heart rate and blood pressure were monitored continuously. Resting and stress dose of radio tracer were injected, imaging was acquired and reviewed in short axis, horizontal long axis and vertical long axis views. TID: 1.0 SSS: 5 SDS: 0 EF: 40 1. Patient tolerated Lexiscan well 2. Frequent PVCs and occasional ventricular bigeminy noted during test 3. Diaphragmatic attenuation with fixed defect at the base of the anterior wall and inferior wall, no significant ischemia or infarction on SPECT images 4. Normal left ventricular size with mild hypokinesia of the basal to mid anterior wall, ejection fraction 40% ANDREW MORAN MD Oct 31, 2021 12:32
== END ==
LOC: CARD 07:45
PROVIDERS: ATTEND Internal Medicine Cardiovascular Disease
DX: I10 Essential (primary) hypertension (principal)
CPT/HCPCS: 78452; 93017; A9502

== ENCOUNTER 2022-05-29 20:34 | Emergency (ER) | payer MEDICARE, OTHER ==
[~2022-05-29] VITALS: Ht 182.8 cm; Wt 80.0 kg
[~2022-05-29 20:34] MED LIST changes: -ACEB400C PO; -CATHETER FLUSH 10 ML SYR IVP PRN; -REGADENOSON 0.4 MG/5 ML SYR (LEXISCAN) IV ONE; +[UNRECOGNIZED DRUG - CODE] PO
[2022-05-29] MEDS ORDERED: LACTATED RINGERS 1,000 ML IV STA (21:16)
[2022-05-29 21:23] LABS: BASOPHILS # (AUTO) 0.1 10^3/uL (0.0-0.1); BASOPHILS % (AUTO) 1 % (0-10); EOSINOPHILS % (AUTO) 1 % (0-10); HEMATOCRIT 43 % (40-54); HEMOGLOBIN 14.4 g/dL (13.3-17.7); LYMPHOCYTES # (AUTO) 0.5 10^3/uL (1.0-4.0); LYMPHOCYTES % (AUTO) 7 % (12-44); MEAN CORPUSCULAR HEMOGLOBIN 31 pg (25-34); MEAN CORPUSCULAR HGB CONC 34 g/dL (32-36); MEAN CORPUSCULAR VOLUME 92 fL (80-99); MEAN PLATELET VOLUME 9.9 fL (9.0-12.2); MONOCYTES # (AUTO) 0.5 10^3/uL (0.0-1.0); MONOCYTES % (AUTO) 8 % (0-12); NEUTROPHILS # (AUTO) 5.8 10^3/uL (1.8-7.8); NEUTROPHILS % (AUTO) 84 % (42-75); PLATELET COUNT 141 10^3/uL (130-400); WHITE BLOOD COUNT 6.9 10^3/uL (4.3-11.0)
[2022-05-29 21:36] LABS: CHLORIDE 105 MMOL/L (98-107); POTASSIUM 4.6 MMOL/L (3.6-5.0); SODIUM 139 MMOL/L (135-145)
[2022-05-29 21:37] LABS: CALCIUM 9.6 MG/DL (8.5-10.1)
[2022-05-29 21:38] LABS: GLUCOSE 115 MG/DL (70-105)
[2022-05-29 21:39] LABS: TOTAL PROTEIN 6.9 GM/DL (6.4-8.2)
[2022-05-29 21:40] LABS: BILIRUBIN,TOTAL 1.3 MG/DL (0.1-1.0); CARBON DIOXIDE 23 MMOL/L (21-32)
[2022-05-29 21:42] LABS: ALKALINE PHOSPHATASE 71 U/L (40-136); CREATININE SERUM 1.37 MG/DL (0.60-1.30); GFR ESTIMATED 55
[2022-05-29 21:43] LABS: BUN/CREATININE RATIO 12
[2022-05-29 21:45] LABS: ALANINE AMINOTRANSFERASE 22 U/L (0-55)
--- NOTE | 2022-05-29 21:59 | ED General ---
General Chief Complaint: General Problems/Pain Stated Complaint: WEAKNESS Nursing Triage Note: Pt presents with c/o weakness and not feeling well since approx noon today. He states he gets dizzy when standing and had a fall earlier today. Pt denies injury and pain. Pt reports getting nauseated on the way to the ER, however after laying down he reports he feels better. Source of Information: Patient Exam Limitations: No Limitations History of Present Illness Date Seen by Provider: May 29, 2022 Time Seen by Provider: 21:27 Initial Comments Here with report of weakness and not feeling well since about noon today. States he had gotten dizzy today reports falling but did not hit anything. [place] almost too weak to walk. He is feeling little better now. Has had some nausea but that seems to have resolved mostly now as well. EMS was summoned to his house but he refused transport but they did assist him to the vehicle which he came here in. He is vaccinated for COVID and influenza including all boosters. reports that he had a low-grade fever today. He still has low-grade fever now. Denies chest pain or breathing problems. Denies sore throat, runny nose but does have cough. Timing/Duration: 12 Hours, Changing Over Time Severity: Mild, Moderate Associated Systoms: No Chest Pain; Cough, Fever/Chills; No Headaches, No Nausea/Vomiting, No Shortness of Air; Weakness Allergies and Home Medications Allergies Coded Allergies: No Known Drug Allergies (Unverified , 02/11/19) Patient Home Medication List Home Medication List Reviewed: Yes Acebutolol HCl (Acebutolol HCl) 400 Mg Capsule, 400 MG PO DAILY, (Reported) Entered as Reported by: HERMINIO LUCIA on 02/11/19919 Amlodipine Besylate (Norvasc) 10 Mg Tablet, 10 MG PO DAILY, (Reported) Entered as Reported by: KASSIDY WRIGHT on 08/04/19 1426 Atorvastatin Calcium (Lipitor) 10 Mg Tablet, 10 MG PO HS, (Reported) Entered as Reported by: HERMINIO LUCIA on 02/11/19919 Enalapril Maleate (Enalapril Maleate) 10 Mg Tablet, 10 MG PO DAILY, (Reported) Entered as Reported by: HERMINIO LUCIA on 02/11/19919 Fish Oil/Dha/Epa (Fish Oil 1,200 mg Fish Oil) 1 Each Capsule, 2 CAP PO DAILY, (Reported) Entered as Reported by: HERMINIO LUCIA on 02/11/19919 Pantoprazole Sodium (Pantoprazole Sodium) 40 Mg Tablet.dr, 40 MG PO DAILY, (Reported) Entered as Reported by: HERMINIO LUCIA on 02/11/19919 Review of Systems Review of Systems Constitutional: see HPI, dizziness, fever, weakness Respiratory: cough; No short of breath Cardiovascular: No chest pain, No palpitations Gastrointestinal: No nausea, No vomiting Genitourinary: no symptoms reported Musculoskeletal: No back pain, No muscle pain Skin: no symptoms reported All Other Systems Reviewed Negative Unless Noted: Yes Past [id number] Hx Patient Social History Tobacco Use?: No Use of E-Cig and/or Vaping dev: No Substance use?: No Alcohol Use?: No Seasonal Allergies Seasonal Allergies: No Past Medical History Surgeries: Yes (bilat ing hernia, left fibial fx) Respiratory: No Cardiac: Yes Coronary Artery Disease, High Cholesterol, Hypertension, Palpitations Neurological: No Genitourinary: No Gastrointestinal: No Musculoskeletal: Yes Fractures Endocrine: No HEENT: No Cancer: No Psychosocial: No Integumentary: No Blood Disorders: No Family Medical History Reviewed Nursing Family Hx Physical Exam Vital Signs Vital Signs - First Documented 05/29/22 20:41 Temp 37.7 Pulse 70 Resp 18 B/P (MAP) 107/64 (78) Capillary Refill : Less Than 3 Seconds Height, Weight, BMI Height: 5'10.00" Weight: 208lbs. 0.0oz. [id number]; 23.00 BMI Method: General Appearance: No Apparent Distress, WD/WN HEENT: PERRL/EOMI, Pharynx Normal Neck: Non Tender, Supple Respiratory: Lungs Clear, Normal Breath Sounds Cardiovascular: Regular Rate, Rhythm, No Murmur Gastrointestinal: Non Tender, Soft Back: Normal Inspection, No CVA Tenderness, No Vertebral Tenderness Extremity: Normal Inspection, Normal Range of Motion, Non Tender, No Calf Tenderness Neurologic/Psychiatric: Alert, Oriented x3 Skin: Normal Color, Warm/Dry Progress/Results/Core Measures Suspected Sepsis SIRS Temperature: Pulse: 70 Respiratory Rate: 18 Laboratory Tests 05/29/22 21:05: White Blood Count 6.9 Blood Pressure 107 /64 Mean: 78 Laboratory Tests 05/29/22 21:05: Creatinine 1.37H, Platelet Count 141, Total Bilirubin 1.3H Results/Orders Lab Results Laboratory Tests Test 05/29/22 21:05 05/29/22 21:10 05/29/22 23:10 Range/Units White Blood Count 6.9 4.3-11.0 10^3/uL Red Blood Count 4.66 4.30-5.52 10^6/uL Hemoglobin 14.4 13.3-17.7 g/dL Hematocrit 43 40-54 % Mean Corpuscular Volume 92 80-99 fL Mean Corpuscular Hemoglobin 31 25-34 pg Mean Corpuscular Hemoglobin Concent 34 32-36 g/dL Red Cell Distribution Width 13.4 10.0-14.5 % Platelet Count 141 130-400 10^3/uL Mean Platelet Volume 9.9 9.0-12.2 fL Immature Granulocyte % (Auto) 0 % Neutrophils (%) (Auto) 84 H 42-75 % Lymphocytes (%) (Auto) 7 L 12-44 % Monocytes (%) (Auto) 8 0-12 % Eosinophils (%) (Auto) 1 0-10 % Basophils (%) (Auto) 1 0-10 % Neutrophils # (Auto) 5.8 1.8-7.8 10^3/uL Lymphocytes # (Auto) 0.5 L 1.0-4.0 10^3/uL Monocytes # (Auto) 0.5 0.0-1.0 10^3/uL Eosinophils # (Auto) 0.0 0.0-0.3 10^3/uL Basophils # (Auto) 0.1 0.0-0.1 10^3/uL Immature Granulocyte # (Auto) 0.0 0.0-0.1 10^3/uL Sodium Level 139 135-145 MMOL/L Potassium Level 4.6 3.6-5.0 MMOL/L Chloride Level 105 98-107 MMOL/L Carbon Dioxide Level 23 21-32 MMOL/L Anion Gap 11 5-14 MMOL/L Blood Urea Nitrogen 16 7-18 MG/DL Creatinine 1.37 H 0.60-1.30 MG/DL Estimat Glomerular Filtration Rate 55 BUN/Creatinine Ratio 12 Glucose Level 115 H 70-105 MG/DL Calcium Level 9.6 8.5-10.1 MG/DL Corrected Calcium 9.6 8.5-10.1 MG/DL Total Bilirubin 1.3 H 0.1-1.0 MG/DL Aspartate Amino Transf (AST/SGOT) 17 5-34 U/L Alanine Aminotransferase (ALT/SGPT) 22 0-55 U/L Alkaline Phosphatase 71 40-136 U/L Troponin I < 0.028 <0.028 NG/ML C-Reactive Protein High Sensitivity 1.72 H 0.00-0.50 MG/DL Total Protein 6.9 6.4-8.2 GM/DL Albumin 4.0 3.2-4.5 GM/DL Influenza Type A (RT-PCR) Detected H Not Detecte Influenza Type B (RT-PCR) Not Detected Not Detecte SARS-CoV-2 RNA (RT-PCR) Not Detected Not Detecte Urine Color YELLOW Urine Clarity CLEAR Urine pH 6.0 5-9 Urine Specific [place] 1.025 H 1.016-1.022 Urine Protein NEGATIVE NEGATIVE Urine Glucose (UA) NEGATIVE NEGATIVE Urine Ketones NEGATIVE NEGATIVE Urine Nitrite NEGATIVE NEGATIVE Urine Bilirubin NEGATIVE NEGATIVE Urine Urobilinogen 0.2 < = 1.0 MG/DL Urine Leukocyte Esterase NEGATIVE NEGATIVE Urine RBC (Auto) NEGATIVE NEGATIVE Urine RBC NONE /HPF Urine WBC 0-2 /HPF Urine Squamous Epithelial Cells NONE /HPF Urine Crystals NONE /LPF Urine Bacteria NEGATIVE /HPF Urine Casts PRESENT /LPF Urine Hyaline Casts 10-25 H /LPF Urine Mucus LARGE H /LPF Urine Culture Indicated NO My Orders Orders - LEI QUIROGA MD Ekg Tracing (05/29/22 20:59) Influenza A And B By Pcr (05/29/22 21:16) Covid 19 Inhouse Test (05/29/22 21:16) Cbc With Automated Diff (05/29/22 21:16) Comprehensive Metabolic Panel (05/29/22 21:16) Hs C Reactive Protein (05/29/22 21:16) Troponin I [place] (05/29/22 21:16) Lactated Ringers (Lr 1000 Ml Iv Solution (05/29/22 21:16) Ed Iv/Invasive Line Start (05/29/22 21:16) Ua Culture If Indicated (05/29/22 21:18) Chest 1 View, Ap/Pa Only (05/29/22 21:36) Rx-Oseltamivir Suspension (Rx-Tamiflu [place] (05/29/22 23:58) Vital Signs/I&O 05/29/22 20:41 Temp 37.7 Pulse 70 Resp 18 B/P (MAP) 107/64 (78) Capillary Refill : Less Than 3 Seconds Blood Pressure Mean: 78 Progress Note : Progress Note Seen and evaluated. IV, labs, chest x-ray and EKG ordered. LR 1 L bolus. Does have some findings consistent with viral etiology so we will check influenza and COVID screen. Overall he is feeling better now. Monitor patient. 2200: Patient is influenza positive. We will check chest x-ray given his cough but likely culprit is viral etiology. The rest of the labs to this point are nonconcerning and troponin is negative with normal white count. Monitor patient. 0002: Patient has influenza. Renal function is less than 60 GFR so he would need renal dose Tamiflu. This would be 30 mg p.o. twice daily. Given age, it is reasonable to initiate this. We do have and the liquid form and so we will send that with the patient. There are no pharmacies open until Friday, 36 hours from now and so we will that would be outside the window of the 48 hours since onset since he had onset approximately 12 hours ago. He would best benefit from initiation of treatment now. This was discussed with patient and family who agree. Discharged home with return precautions. Patient and family verbalized understanding instructions and agreement with plan. ECG Initial ECG Impression Date: May 29, 2022 Initial ECG Impression Time: 21:07 Initial ECG Rate: 72 Initial ECG Rhythm: Normal Sinus Comment Sinus rhythm with leftward axis. No evidence of ST elevation AR. Interpreted by me. Previous EKG of 12/16/2007 is similar but this month shows more leftward axis. Diagnostic Imaging Diagonstic Imaging: Xray Plain Films/CT/US/NM/MRI: chest Comments No obvious infiltrate on single view chest x-ray. Mildly enlarged cardiac silhouette. Interpreted by me. Departure Impression Primary Impression: Influenza A Disposition: 01 HOME, SELF-CARE Condition: Stable Departure-Patient Inst. Decision time for Depature: 00:04 Referrals: ED ZHAO MD (PCP/Family) Primary Care Physician Patient Instructions: Flu, Adult (DC) Add. Discharge Instructions: All discharge instructions reviewed with patient and/or family. Voiced understanding. Take medications as directed. Follow-up with your doctor next week for recheck and further evaluation. Return for worse pain, fever, vomiting, weakness, breathing problems or other concerns as needed. You may take Tylenol/acetaminophen 1000 mg every 6-8 hours as needed for fever or pain. Drink plenty of fluids and get plenty of rest. LEI QUIROGA MD May 29, 2022 21:59
[2022-05-29 23:19] LABS: BILIRUBIN,URINE NEGATIVE (NEGATIVE); CLARITY,URINE CLEAR; COLOR,URINE YELLOW; GLUCOSE, URINE (UA) NEGATIVE (NEGATIVE); KETONES,URINE NEGATIVE (NEGATIVE); LEUKOCYTE ESTERASE ,URINE NEGATIVE (NEGATIVE); NITRITE,URINE NEGATIVE (NEGATIVE); PROTEIN,URINE NEGATIVE (NEGATIVE)
[2022-05-29 23:36] LABS: BACTERIA,URINE NEGATIVE /HPF; WBC,URINE 0-2 /HPF
[2022-05-29] MEDS ORDERED: RX-OSELTAMIVIR 6 MG/ML (TAMIFLU) BOT PO STA (23:58)
[2022-05-30 00:21] VITALS: BP 112/68
--- NOTE | 2022-05-30 07:55 | Diagnostic Imaging Report ---
INDICATION: cough. TECHNIQUE: Single view chest 9:54 PM. CORRELATION STUDY: 09/10/2018 FINDINGS: Heart size is mildly enlarged, appears increased from prior. Vasculature overall within normal limits. The lungs are clear with no consolidating infiltrate. There is no significant effusion or pneumothorax. IMPRESSION: 1. Cardiac enlargement without failure. No pulmonary infiltrate. Dictated by: Dictated on workstation # [id number]
== END 2022-05-30 00:20 | disposition home or self-care (01) ==
LOC: EDUNIT# 20:34 → ER 20:35
DX: J10.1 Influenza due to other identified influenza virus with other respiratory manifestations (principal); Z20.822 Contact with and (suspected) exposure to COVID-19
CPT/HCPCS: 36415; 71045; 80053; 81000; 84484; 85025; 86141; 87636

== ENCOUNTER → 2022-08-20 | Outpatient (CLI) | payer MEDICARE, OTHER | LOC: CARD 08-19 08:57 | PROVIDERS: ATTEND Physician Assistant | DX: I11.9 Hypertensive heart disease without heart failure (principal); I35.1 Nonrheumatic aortic (valve) insufficiency | CPT/HCPCS: 93306 ==

== ENCOUNTER → 2022-10-08 | Outpatient (CLI) | payer MEDICARE, OTHER ==
[~2022-10-08] MED LIST changes: -ENAL10TA16 PO; +ENLP10T PO; +GADOTERATE 0.5 MMOL/ML (CLARISCAN) 20 ML VIAL IV ONE
[2022-10-08 07:20] LABS: CREATININE SERUM 1.07 MG/DL (0.60-1.30)
--- NOTE | 2022-10-08 10:23 | Diagnostic Imaging Report ---
EXAMINATION: MRI of the abdomen with and without contrast. TECHNIQUE: Multiplanar, multisequence MR images of the abdomen were obtained with and without intravenous contrast. 3-D MIP reformats of the biliary system were created on a separate workstation and submitted for interpretation for MRCP protocol. HISTORY: Pancreatic cyst. COMPARISON: MRI abdomen of 10/10/2021 FINDINGS: Liver: No suspicious liver lesions. No steatosis. No surface nodularity. The portal vein is patent. Ducts: No biliary ductal dilation. Gallbladder: Normal. Pancreas: The multilobulated and multiseptated cystic structure arising from the tail of the pancreas is stable in size measuring 1.9 x 2.0 cm. This is again noted to have a few thin enhancing internal septations, but no concerning mural nodularity. The main pancreatic duct is not dilated. Spleen: Normal. Adrenals: Normal. Kidneys: No suspicious lesions. No hydronephrosis. The 3.0 x 2.5 cm exophytic cyst off the mid left kidney is stable. Smaller simple cysts in the anterior aspect of the right kidney also stable. Bowel: Stable small hiatal hernia. No dilated loops of bowel. Other: No lymphadenopathy. Visualized portions of the thorax are normal. No suspicious osseus lesions. IMPRESSION: 1. The multicystic structure in the tail of the pancreas is stable in size since last years' examination. This has no worrisome features by MRI. Differential consideration remains unchanged and can be a serous or mucinous cystadenoma. 2. Consider additional follow-up in one year to ensure stability. Dictated by: Dictated on workstation # [id number]
== END ==
LOC: RAD 08:00
PROVIDERS: ATTEND Internal Medicine
DX: K86.2 Cyst of pancreas (principal)
CPT/HCPCS: 36415; 74183; 82565; 84520

== ENCOUNTER → 2023-03-27 | Outpatient (CLI) | payer MEDICARE, OTHER ==
[~2023-03-27] MED LIST changes: -GADOTERATE 0.5 MMOL/ML (CLARISCAN) 20 ML VIAL IV ONE
--- NOTE | 2023-03-27 11:53 | Diagnostic Imaging Report ---
INDICATION: HYPERTENSION WITH CAD, CHF, SYSTOLIC, CHRONIC, DYSPNEA ON EXERTION COMPARISON: 05/29/2022 FINDINGS: Frontal and lateral views of the chest demonstrate normal heart size and pulmonary vascularity. The lungs are clear. There are no signs of infiltrate, pleural effusions or pneumothoraces. The visualized osseous structures show no acute abnormalities. IMPRESSION: 1. No acute process. No signs of infiltrates, effusions or pneumothoraces. Dictated by: Dictated on workstation # [id number]
== END ==
LOC: RAD 09:36
PROVIDERS: ATTEND Internal Medicine
DX: I11.0 Hypertensive heart disease with heart failure (principal); I50.22 Chronic systolic (congestive) heart failure; I25.10 Atherosclerotic heart disease of native coronary artery without angina pectoris
CPT/HCPCS: 71046

== ENCOUNTER → 2023-04-15 | Outpatient (CLI) | payer MEDICARE, OTHER ==
[~2023-04-15] MED LIST changes: +RT-ALBUTEROL SULF 2.5 MG/3 ML PRE-MIX VIAL INH ONE
== END ==
LOC: RT 07:28
PROVIDERS: ATTEND Internal Medicine
DX: R06.09 Other forms of dyspnea (principal)
CPT/HCPCS: 94060; 94726; 94729

== ENCOUNTER → 2023-05-14 | Outpatient (CLI) | payer MEDICARE, OTHER ==
[~2023-05-14] MED LIST changes: +HOLD METFORMIN - RECEIVED CONTRAST 20 ML VIAL IV SCH; +IOHEXOL 350 MG/ML 100 ML (OMNIPAQUE 350) VIAL IV ONE; +NS 100 ML (IVPB) BAG IV ONE; -RT-ALBUTEROL SULF 2.5 MG/3 ML PRE-MIX VIAL INH ONE
--- NOTE | 2023-05-14 13:32 | Diagnostic Imaging Report ---
PROCEDURE: CT left upper extremity with contrast. TECHNIQUE: Axial images were obtained through the left upper extremity after intravenous contrast and reformatted into coronal and sagittal oblique planes. Auto Exposure Controls were utilized during the CT exam to meet ALARA standards for radiation dose reduction. INDICATION: Mass and swelling EXAMINATION: Left lower extremity CT with contrast 05/14/2023. FINDINGS: Diffuse hyperdensity is seen along the expected course of the triceps tendon and musculature. Nonspecific perhaps areas of heterotopic ossification secondary to prior injury. The proximal aspect of the abnormality is incompletely included. There is overlying heterogeneous density within the adjacent subcutaneous soft tissues which extend distally to overlie the olecranon process. There are punctate associated diffuse calcifications within the abnormality as well as a cystic collection distally with peripheral enhancement and associated calcification. The cystic area contain septations and measures approximately 3.3 x 1.4 x 3.3 cm in size. Surrounding subcutaneous fat stranding is noted. The abnormality abuts the posterior proximal ulna and olecranon process with a prominent adjacent spur present. Given the abnormality is inseparable from the ulna a lesion emanating from the ulna is difficult to exclude although felt to be less likely given no destructive change along the ulna. Low density areas however within the spur emanating from the olecranon process nonspecific and a superimposed fractures to the abnormality or infection not excluded. The remaining osseous structures unremarkable. Diffuse fat stranding is seen extending distally into the forearm. Within the posterior distal humeral region there is an elongated peripherally enhancing cystic like collection which may be associated with the posterior aspect of the distal triceps musculature or may lie in the overlying fascial planes. The area measures approximately 2.8 x 0.7 cm on axial imaging and could represent an abscess. There is no significant joint effusion. IMPRESSION: 1. Diffuse abnormality probably centered in the subcutaneous soft tissues posterior to the elbow with both cystic and with both calcifications and cystic components noted. If there has been trauma to the region this could represent a developing cystic type heterotopic ossification/myositis ossificans given extension into the underlying musculature and possibly triceps tendon. However an infectious process with abscess formation not excluded. A partially calcified cystic soft tissue mass and even hematoma in the differential. MRI with and without contrast recommended for further characterization. 2. Diffuse edema versus cellulitis throughout the extremity extending towards the wrist with an oval fluid collection either within or overlying the triceps muscle. An abscess or hematoma possible but given the enhancement abscess would be the primary consideration again the area could be better evaluated with MRI pre and postcontrast. A similar questionable finding in the distal musculature of the forearm also noted. 3. Irregularity along the spur at the olecranon process likely a chronic process but very early osteomyelitis difficult to exclude. Dictated by: Dictated on workstation # [id number]
== END ==
LOC: RAD 07:45
PROVIDERS: ATTEND Internal Medicine
DX: R60.9 Edema, unspecified (principal); L03.114 Cellulitis of left upper limb
CPT/HCPCS: 73201